=== PATIENT | female | born 1970 | race American Indian/Alaskan Native ===

== ENCOUNTER 2020-11-19 15:56 | Outpatient (CLI) | payer OTHER ==
--- NOTE | 2020-12-07 09:25 | Mammography Report ---
DIGITAL SCREENING MAMMOGRAM WITH CAD, 11/19/2020 CLINICAL INFORMATION / INDICATION: Routine screening mammography. TECHNIQUE: Digital bilateral 2D mammography was obtained in the craniocaudal and mediolateral obliqu e projections. This examination was interpreted with the benefit of Computer-Aided Detection analysis . COMPARISON: 04/13/2017 FINDINGS: Breast Density: There are scattered areas of fibroglandular density. No dominant mass, suspicious calcifications, or architectural distortion in the right breast. Previou sly noted abnormality in the superior right breast has resolved since 2018. However, there is now a n ew mass in the left breast, 12:00, anterior depth, measuring approximately 2.8 cm. Patient had simple cysts in this same location on 2018 ultrasound. No other significant interval change. IMPRESSION: New benign-appearing mass left breast 12:00, anterior depth. Recommend left breast ultras ound for further evaluation. Follow up recommendation: Ultrasound BI-RADS Category 0: Incomplete. Needs additional imaging evaluation and/or prior mammograms for castro leonon. A "normal" or negative report should not discourage follow up or biopsy of a clinically significant f inding. A written summary of these findings will be mailed to the patient. The patient will be entered into a mammography reporting system which will generate a reminder letter for the patient's next appointmen t at the appropriate interval. The [employer] recommends yearly mammograms starting at age 40 and continuing as l winter as a woman is in good health. Breast MRI is recommended for women with an approximate 20-25% or greater lifetime risk of breast cancer, including women with a strong family history of breast or ova carine cancer or who have been treated for Hodgkin's disease. Signer Name: Gloria Fields MD Signed: 12/07/2020 9:21 AM Workstation Name: [email or web address]
== END 2020-11-19 15:57 | disposition home or self-care (01) ==
LOC: SPVWC 15:56
DX: Z12.31 Encounter for screening mammogram for malignant neoplasm of breast (principal)
CPT/HCPCS: 77067

== ENCOUNTER 2021-01-27 09:33 | Outpatient (CLI) | payer OTHER ==
--- NOTE | 2021-01-27 10:28 | Ultrasound Report ---
ULTRASOUND BREAST LEFT LIMITED, 01/27/2021 CLINICAL INFORMATION / INDICATION: ABN MAMMO. Patient presents as a callback from screening mammogram for further evaluation of a new mass in the left breast. TECHNIQUE: Targeted ultrasound evaluation was performed of the area of interest. COMPARISON: Prior mammogram 11/19/2020 FINDINGS: Corresponding with the new mass seen mammographically, there is a benign simple cyst in the left veronika st 12:00 position located 3 cm from the nipple measuring up to 2.9 cm. No suspicious sonographic abno rmality identified. IMPRESSION: 1. A benign cyst accounts for the recent mammographic finding. No suspicious sonographic abnormality identified. Follow up recommendation: Routine yearly BI-RADS Category 2: Benign. A normal or "negative" report should not preclude biopsy or follow-up of a clinically suspicious find ing. Signer Name: Polly Batres MD Signed: 01/27/2021 10:24 AM Workstation Name: [id number]
== END 2021-01-27 09:34 | disposition home or self-care (01) ==
LOC: SPVWC 09:33
PROVIDERS: ATTEND Internal Medicine
DX: N60.02 Solitary cyst of left breast (principal)